=== PATIENT | male | born 1970 | race Hispanic/Latino ===

== ENCOUNTER 2018-01-06 08:04 | Emergency (ER) | payer SELFPAY ==
[2018-01-06] MEDS ORDERED: NAPROXEN 250 MG TAB ONE (08:33)
[2018-01-06] MEDS ORDERED: TETANUS/DIPHTHERIA TOXOID [ADULT] 0.5 ML VIAL IM ONE (08:33)
== END 2018-01-06 09:10 | disposition home or self-care (01) ==
LOC: EDH 08:04
DX: S43.081A Other subluxation of right shoulder joint, initial encounter (principal); S50.01XA Contusion of right elbow, initial encounter; E11.9 Type 2 diabetes mellitus without complications; Z87.891 Personal history of nicotine dependence; W03.XXXA Other fall on same level due to collision with another person, initial encounter; Y93.89 Activity, other specified; Y92.69 Other specified industrial and construction area as the place of occurrence of the external cause; Y99.8 Other external cause status
CPT/HCPCS: 73030; 73080; 90471; 90714

== ENCOUNTER 2018-08-25 12:15 | Emergency (ER) | payer OTHER ==
[2018-08-25] MEDS ORDERED: ASPIRIN 325 MG TABLET ONE (12:29)
[2018-08-25 12:34] LABS: BASOPHILS % (AUTO) 0.5 % (0.0-5.0); EOSINOPHILS % (AUTO) 1.8 % (0.0-8.0); HEMATOCRIT 37.2 % (42-54); LYMPHOCYTES % (AUTO) 17.1 % (21.0-51.0); MEAN CORPUSCULAR HEMOGLOBIN 29.4 pg (27.0-33.0); MEAN CORPUSCULAR HGB CONC 34.1 g/dL (32.0-36.0); MEAN CORPUSCULAR VOLUME 86.2 fL (79-99); MONOCYTES % (AUTO) 5.1 % (3.0-13.0); NEUTROPHILS % (AUTO) 75.5 % (40.0-77.0); PLATELET COUNT (AUTO) 233 K/uL (130-400); RED BLOOD CELL COUNT(AUTO) 4.31 MIL/uL (4.50-6.20); WHITE BLOOD COUNT (AUTO) 11.1 K/uL (4.8-10.8)
[2018-08-25 12:56] LABS: INR 0.98 (0.85-1.15); PARTIAL THROMBOPLASTIN TIME 27.5 SEC (26.3-35.5); PROTHROMBIN TIME 10.3 SEC (9.6-11.6)
[2018-08-25 12:59] LABS: ALBUMIN 3.6 g/dL (3.5-5.0); BILIRUBIN,TOTAL 0.6 mg/dL (0.2-1.0); CREATININE 1.4 mg/dL (0.5-1.5); POTASSIUM 4.1 mmol/L (3.5-5.1); TOTAL PROTEIN, SERUM 8.1 g/dL (6.0-8.3)
[2018-08-25 13:11] LABS: B-TYPE NATRIURETIC PEPTIDE 24 pg/mL (0-100)
[2018-08-25] MEDS ORDERED: INSULIN HUMULIN R 100 UNIT/ML 3ML ONE (13:38)
[2018-08-25] MEDS ORDERED: SODIUM CHLORIDE 0.9% 1000ML 1,000 ML IV ONE (13:45)
== END 2018-08-25 15:02 | disposition home or self-care (01) ==
LOC: EDH 12:15
DX: R07.89 Other chest pain (principal); E11.65 Type 2 diabetes mellitus with hyperglycemia; Z87.891 Personal history of nicotine dependence
CPT/HCPCS: 36415; 71045; 80053; 82550; 82948; 83874; 83880; 84484 ×2; 85025; 85610; 85730; 93005 ×2; 96361; 96374; 99284; J1815; J7030

== ENCOUNTER 2020-11-21 15:40 | Inpatient (IN) | payer OTHER ==
[~2020-11-21] VITALS: Ht 170.2 cm; Wt 83.5 kg
[2020-11-21 16:12] LABS: BASOPHILS % (AUTO) 0.4 % (0.0-5.0); EOSINOPHILS % (AUTO) 0.5 % (0.0-8.0); HEMATOCRIT 32.2 % (42-54); LYMPHOCYTES % (AUTO) 8.4 % (21.0-51.0); MEAN CORPUSCULAR HEMOGLOBIN 29.4 pg (27.0-33.0); MEAN CORPUSCULAR HGB CONC 35.1 g/dL (32.0-36.0); MEAN CORPUSCULAR VOLUME 83.6 fL (79-99); MONOCYTES % (AUTO) 7.8 % (3.0-13.0); NEUTROPHILS % (AUTO) 82.6 % (40.0-77.0); PLATELET COUNT (AUTO) 241 K/uL (130-400); RED BLOOD CELL COUNT(AUTO) 3.85 MIL/uL (4.50-6.20); RED CELL DISTRIBUTION WIDTH 12.1 % (11.0-15.5); WHITE BLOOD COUNT (AUTO) 13.9 K/uL (4.8-10.8)
[2020-11-21 16:29] LABS: INR 1.04 (0.85-1.15); PROTHROMBIN TIME 11.3 SEC (9.6-11.6)
[2020-11-21 16:30] LABS: PARTIAL THROMBOPLASTIN TIME 25.5 SEC (26.3-35.5)
[2020-11-21 16:44] LABS: CARBON DIOXIDE 25 mmol/L (21-32); CHLORIDE 96 mmol/L (101-111); CREATININE 1.4 mg/dL (0.5-1.5); GLOMERULAR FILTR. RATE CALC 57 mL/min (>60); GLUCOSE,RANDOM 373 mg/dL (70-105); POTASSIUM 3.9 mmol/L (3.5-5.1); SODIUM SERUM 133 mmol/L (136-145); UREA NITROGEN, BLOOD 20 mg/dL (7-18)
[2020-11-21] MEDS ORDERED: 0.9%NACL 1000ML 1,000 ML IV ONE ×2 (16:50→17:27)
[2020-11-21] MEDS ORDERED: ACETAMINOPHEN 325 MG TAB ONE (16:50)
[2020-11-21] MEDS ORDERED: ZOSYN 3.375GM+NS 50ML 50 ML IV ONE (16:51)
[2020-11-21 16:57] LABS: ALANINE AMINOTRANSFERASE 17 U/L (12-78); ALBUMIN 3.2 g/dL (3.5-5.0); ASPARTATE AMINOTRANSFERASE 19 U/L (10-37); CREATINE KINASE, TOTAL 67 U/L (21-232); MYOGLOBIN 73 ng/mL (10-92); TOTAL PROTEIN, SERUM 8.8 g/dL (6.0-8.3); TROPONIN I < 0.04 ng/mL (0.00-0.06)
[2020-11-21] MEDS ORDERED: VANCOMYCIN 1G/250ML KIT 250 ML IV ONE (17:26)
[2020-11-21] MEDS ORDERED: MORPHINE 2 MG SYG IV PRN (19:00)
[2020-11-21] MEDS ORDERED: VANCOMYCIN PROTOCOL PER PHARMACY IV PRN (19:00)
[2020-11-21] MEDS ORDERED: MORPHINE 4 MG SYG IV PRN (19:00)
[2020-11-21] MEDS ORDERED: ACETAMINOPHEN 325 MG TAB PO PRN (19:00)
[2020-11-21] MEDS ORDERED: LACTULOSE 20 GM/30 ML UDCUP PO PRN (19:00)
[2020-11-21] MEDS ORDERED: ONDANSETRON 4MG INJ IV PRN (19:00)
[2020-11-21 19:32] LABS: HEMOGLOBIN A1C 13.6 % (4.0-6.0)
[2020-11-21] MEDS ORDERED: VANCOMYCIN 500MG+NS 100ML 100 ML IV ONE (20:00)
[2020-11-21] MEDS: FAMOTIDINE 20MG TAB PO SCH (21:00)
[2020-11-21 22:30] VITALS: BP 139/82
[2020-11-21] MEDS: CEFEPIME HCL 1 GM VIAL IVP SCH (23:05)
[2020-11-21] MEDS: INSULIN HUMULIN R 100 UNIT/ML 3ML SQ SCH (23:08)
[2020-11-21] MEDS: INSULIN GLARGINE 100 UNITS/ML 10 ML VIAL SQ SCH (23:09)
[2020-11-22] MEDS: CEFEPIME HCL 1 GM VIAL IVP SCH ×3 (03:21→21:03)
[2020-11-22 03:53] VITALS: BP 99/50
[2020-11-22] MEDS: VANCOMYCIN 1G/250ML KIT 250 ML IV SCH ×2 (06:00→18:01)
[2020-11-22] MEDS: INSULIN HUMULIN R 100 UNIT/ML 3ML SQ SCH ×7 (06:01→21:11)
[2020-11-22 07:30] VITALS: BP 141/73
[2020-11-22] MEDS ORDERED: CEFEPIME HCL 2 GM VIAL ONE (09:44)
[2020-11-22] MEDS: FAMOTIDINE 20MG TAB PO SCH ×2 (09:50→21:03)
[2020-11-22] MEDS: ENOXAPARIN SODIUM 40 MG/0.4 ML SYRINGE SQ SCH (09:50)
[2020-11-22] MEDS ORDERED: GADODIAMIDE 10 MMOL/20 ML VIAL IV ONE (09:54)
[2020-11-22] MEDS: FLUCONAZOLE 200 MG/NS 100 ML 100 ML IV SCH (10:11)
[2020-11-22 12:24] VITALS: BP 116/63
[2020-11-22 16:00] VITALS: BP 119/61
[2020-11-22] MEDS: LACTATED RINGERS 1000ML 1,000 ML IV SCH (18:04)
[2020-11-22] MEDS ORDERED: METF-446 PO (19:19)
[2020-11-22 20:06] VITALS: BP 112/58
[2020-11-22] MEDS: INSULIN GLARGINE 100 UNITS/ML 10 ML VIAL SQ SCH (21:10)
[2020-11-22 21:30] VITALS: BP 170/64
[2020-11-23] VITALS (7 sets, daily range): BP systolic 103–152; BP diastolic 59–79
[2020-11-23] MEDS: CEFEPIME HCL 1 GM VIAL IVP SCH ×3 (05:56→18:39)
[2020-11-23] MEDS: LACTATED RINGERS 1000ML 1,000 ML IV SCH ×3 (06:02→23:11)
[2020-11-23 06:15] LABS: BASOPHILS % (AUTO) 0.3 % (0.0-5.0); EOSINOPHILS % (AUTO) 1.6 % (0.0-8.0); HEMATOCRIT 25.8 % (42-54); MEAN CORPUSCULAR HEMOGLOBIN 29.7 pg (27.0-33.0); MEAN CORPUSCULAR HGB CONC 35.3 g/dL (32.0-36.0); MEAN CORPUSCULAR VOLUME 84.3 fL (79-99); MONOCYTES % (AUTO) 10.4 % (3.0-13.0); NEUTROPHILS % (AUTO) 64.2 % (40.0-77.0); PLATELET COUNT (AUTO) 213 K/uL (130-400); RED BLOOD CELL COUNT(AUTO) 3.06 MIL/uL (4.50-6.20); RED CELL DISTRIBUTION WIDTH 12.1 % (11.0-15.5)
[2020-11-23 06:24] LABS: CREATININE 1.4 mg/dL (0.5-1.5); POTASSIUM 3.4 mmol/L (3.5-5.1)
[2020-11-23 06:29] LABS: ALBUMIN 2.4 g/dL (3.5-5.0); BILIRUBIN,TOTAL 1.1 mg/dL (0.2-1.0); TOTAL PROTEIN, SERUM 7.1 g/dL (6.0-8.3)
[2020-11-23] MEDS: VANCOMYCIN 1G/250ML KIT 250 ML IV SCH ×2 (06:48→17:49)
[2020-11-23] MEDS: INSULIN HUMULIN R 100 UNIT/ML 3ML SQ SCH ×4 (06:53→21:32)
[2020-11-23] MEDS ORDERED: INSULIN LISPRO 100 UNIT/ML 3ML SQ SCH (08:00)
[2020-11-23] MEDS ORDERED: POTASSIUM CHLORIDE 20MEQ/100ML 100 ML IV PRN (08:30)
[2020-11-23] MEDS ORDERED: KCL 20 MEQ ERTAB PO PRN (08:30)
[2020-11-23] MEDS ORDERED: LIDOCAINE HCL-MPF 1% 2ML VIAL IV PRN (08:30)
[2020-11-23] MEDS: FAMOTIDINE 20MG TAB PO SCH ×2 (10:42→21:18)
[2020-11-23] MEDS: FLUCONAZOLE 200 MG/NS 100 ML 100 ML IV SCH (10:42)
[2020-11-23] MEDS: ENOXAPARIN SODIUM 40 MG/0.4 ML SYRINGE SQ SCH (10:44)
[2020-11-23] MEDS: INSULIN LISPRO 100 UNIT/ML 3ML SQ SCH ×3 (10:47→17:51)
[2020-11-23] MEDS ORDERED: COMPOUND IV REFRIGERATED 1 EACH IVSOLN MISC PRN (17:30)
[2020-11-23] MEDS: POTASSIUM CHLORIDE 10% ELIXIR 20 MEQ/15 ML UDCUP PO PRN (18:40)
[2020-11-23] MEDS ORDERED: DIPH,PERTUSS(ACELL),TET VAC/PF 0.5 ML VIAL IM ONE (19:00)
[2020-11-23] MEDS ORDERED: INSULIN GLARGINE 100 UNITS/ML 10 ML VIAL SQ SCH (21:00)
[2020-11-23] MEDS: INSULIN GLARGINE 100 UNITS/ML 10 ML VIAL SQ SCH (21:31)
[2020-11-24 00:12] VITALS: BP 129/73
[2020-11-24] MEDS: VANCOMYCIN 750MG + NS 250 ML IV SCH ×4 (01:54→10:44)
[2020-11-24] MEDS: CEFEPIME HCL 1 GM VIAL IVP SCH ×3 (03:42→18:01)
[2020-11-24 04:12] VITALS: BP 138/76
[2020-11-24 05:50] LABS: BASOPHILS % (AUTO) 0.4 % (0.0-5.0); EOSINOPHILS % (AUTO) 2.9 % (0.0-8.0); HEMATOCRIT 29.6 % (42-54); LYMPHOCYTES % (AUTO) 18.4 % (21.0-51.0); MEAN CORPUSCULAR HEMOGLOBIN 28.7 pg (27.0-33.0); MEAN CORPUSCULAR HGB CONC 33.8 g/dL (32.0-36.0); MEAN CORPUSCULAR VOLUME 85.1 fL (79-99); NEUTROPHILS % (AUTO) 69.9 % (40.0-77.0); PLATELET COUNT (AUTO) 259 K/uL (130-400); RED BLOOD CELL COUNT(AUTO) 3.48 MIL/uL (4.50-6.20); RED CELL DISTRIBUTION WIDTH 12.1 % (11.0-15.5); WHITE BLOOD COUNT (AUTO) 9.5 K/uL (4.8-10.8)
[2020-11-24 06:23] LABS: ALBUMIN 2.4 g/dL (3.5-5.0); BILIRUBIN,TOTAL 0.5 mg/dL (0.2-1.0); CREATININE 1.3 mg/dL (0.5-1.5); POTASSIUM 3.9 mmol/L (3.5-5.1); TOTAL PROTEIN, SERUM 7.2 g/dL (6.0-8.3)
[2020-11-24] MEDS: INSULIN HUMULIN R 100 UNIT/ML 3ML SQ SCH ×4 (06:38→20:55)
[2020-11-24 08:00] VITALS: BP 127/71
[2020-11-24] MEDS: FAMOTIDINE 20MG TAB PO SCH ×2 (09:06→20:50)
[2020-11-24] MEDS: FLUCONAZOLE 200 MG/NS 100 ML 100 ML IV SCH (09:06)
[2020-11-24] MEDS: ENOXAPARIN SODIUM 40 MG/0.4 ML SYRINGE SQ SCH (09:07)
[2020-11-24] MEDS: LACTATED RINGERS 1000ML 1,000 ML IV SCH ×3 (09:09→23:22)
[2020-11-24] MEDS: INSULIN LISPRO 100 UNIT/ML 3ML SQ SCH ×3 (09:20→17:15)
[2020-11-24] MEDS ORDERED: NEOMY SULF/BACITRAC ZN/POLY OINT 30GM TUBE TP SCH (11:30)
[2020-11-24 13:31] VITALS: BP 110/73
[2020-11-24 16:24] VITALS: BP 124/67
[2020-11-24 20:00] VITALS: BP 138/75
[2020-11-24] MEDS: ACETAMINOPHEN 325 MG TAB PO PRN (20:52)
[2020-11-24] MEDS: INSULIN GLARGINE 100 UNITS/ML 10 ML VIAL SQ SCH (20:56)
[2020-11-24] MEDS ORDERED: VANCOMYCIN 750MG + NS 250 ML IV SCH ×2 (21:00)
[2020-11-25] VITALS: BP 122/74
[2020-11-25] MEDS: CEFEPIME HCL 1 GM VIAL IVP SCH ×3 (02:22→21:42)
[2020-11-25 04:00] VITALS: BP 140/80
[2020-11-25 05:46] LABS: BASOPHILS % (AUTO) 0.4 % (0.0-5.0); EOSINOPHILS % (AUTO) 4.2 % (0.0-8.0); HEMATOCRIT 27.6 % (42-54); LYMPHOCYTES % (AUTO) 19.7 % (21.0-51.0); MEAN CORPUSCULAR HEMOGLOBIN 29.7 pg (27.0-33.0); MEAN CORPUSCULAR HGB CONC 34.8 g/dL (32.0-36.0); MEAN CORPUSCULAR VOLUME 85.4 fL (79-99); MONOCYTES % (AUTO) 12.4 % (3.0-13.0); NEUTROPHILS % (AUTO) 62.9 % (40.0-77.0); PLATELET COUNT (AUTO) 224 K/uL (130-400); RED BLOOD CELL COUNT(AUTO) 3.23 MIL/uL (4.50-6.20); RED CELL DISTRIBUTION WIDTH 12.2 % (11.0-15.5); WHITE BLOOD COUNT (AUTO) 7.2 K/uL (4.8-10.8)
[2020-11-25 05:59] LABS: ALBUMIN 2.3 g/dL (3.5-5.0); BILIRUBIN,TOTAL 0.3 mg/dL (0.2-1.0); CREATININE 1.2 mg/dL (0.5-1.5); POTASSIUM 3.8 mmol/L (3.5-5.1)
[2020-11-25] MEDS: INSULIN HUMULIN R 100 UNIT/ML 3ML SQ SCH ×4 (06:34→21:52)
[2020-11-25 07:21] VITALS: BP 135/84
[2020-11-25] MEDS: INSULIN LISPRO 100 UNIT/ML 3ML SQ SCH ×3 (07:42→16:48)
[2020-11-25] MEDS: FLUCONAZOLE 200 MG/NS 100 ML 100 ML IV SCH (08:58)
[2020-11-25] MEDS: ENOXAPARIN SODIUM 40 MG/0.4 ML SYRINGE SQ SCH (08:58)
[2020-11-25] MEDS: FAMOTIDINE 20MG TAB PO SCH ×2 (08:58→21:42)
[2020-11-25] MEDS: NEOMY SULF/BACITRA/POLYMYXIN B 1 EACH PACKET TP SCH (09:00)
[2020-11-25] MEDS ORDERED: VANCOMYCIN 750MG + NS 250 ML IV SCH ×2 (09:48)
[2020-11-25 11:07] VITALS: BP 138/78
[2020-11-25 15:30] VITALS: BP 134/81
[2020-11-25 19:51] VITALS: BP 122/74
[2020-11-25] MEDS: VANCOMYCIN 750MG + NS 250 ML IV SCH ×2 (21:43)
[2020-11-25] MEDS: INSULIN GLARGINE 100 UNITS/ML 10 ML VIAL SQ SCH (21:51)
[2020-11-26 00:20] VITALS: BP 133/81
[2020-11-26 03:37] VITALS: BP 124/67
[2020-11-26] MEDS: CEFEPIME HCL 1 GM VIAL IVP SCH (04:39)
[2020-11-26] MEDS: ACETAMINOPHEN 325 MG TAB PO PRN (04:47)
[2020-11-26 05:18] LABS: BASOPHILS % (AUTO) 0.5 % (0.0-5.0); EOSINOPHILS % (AUTO) 4.1 % (0.0-8.0); HEMATOCRIT 28.3 % (42-54); LYMPHOCYTES % (AUTO) 19.2 % (21.0-51.0); MEAN CORPUSCULAR HEMOGLOBIN 28.8 pg (27.0-33.0); MEAN CORPUSCULAR HGB CONC 33.6 g/dL (32.0-36.0); MEAN CORPUSCULAR VOLUME 85.8 fL (79-99); NEUTROPHILS % (AUTO) 64.8 % (40.0-77.0); PLATELET COUNT (AUTO) 270 K/uL (130-400); RED CELL DISTRIBUTION WIDTH 12.3 % (11.0-15.5); WHITE BLOOD COUNT (AUTO) 7.9 K/uL (4.8-10.8)
[2020-11-26 05:39] LABS: ALBUMIN 2.5 g/dL (3.5-5.0); BILIRUBIN,TOTAL 0.3 mg/dL (0.2-1.0); CREATININE 1.3 mg/dL (0.5-1.5); POTASSIUM 3.8 mmol/L (3.5-5.1); TOTAL PROTEIN, SERUM 7.3 g/dL (6.0-8.3)
[2020-11-26] MEDS ORDERED: METF-446 PO (07:39)
[2020-11-26] MEDS: INSULIN HUMULIN R 100 UNIT/ML 3ML SQ SCH ×2 (08:10→11:48)
[2020-11-26] MEDS: INSULIN LISPRO 100 UNIT/ML 3ML SQ SCH ×2 (08:11→11:55)
[2020-11-26 08:14] VITALS: BP 121/67
[2020-11-26] MEDS: FLUCONAZOLE 200 MG/NS 100 ML 100 ML IV SCH (08:14)
[2020-11-26] MEDS: FAMOTIDINE 20MG TAB PO SCH (08:15)
[2020-11-26] MEDS: VANCOMYCIN 750MG + NS 250 ML IV SCH ×2 (08:15)
[2020-11-26] MEDS: ENOXAPARIN SODIUM 40 MG/0.4 ML SYRINGE SQ SCH (08:16)
[2020-11-26] MEDS: NEOMY SULF/BACITRA/POLYMYXIN B 1 EACH PACKET TP SCH (09:00)
[2020-11-26 11:47] VITALS: BP 125/76
[2020-11-26 11:49] VITALS: BP 125/76
[2020-11-26] MEDS ORDERED: AMOXICILLIN 500 MG CAPSULE PO SCH (14:00)
== END 2020-11-26 14:45 | disposition home or self-care (01) | DRG 264 ==
LOC: EDH 15:40 → EDHIP 15:41 → 3BH 21:42
PROVIDERS: ADMIT Internal Medicine; ATTEND Internal Medicine
PROC: 0YBN0ZZ Excision of Left Foot, Open Approach (ICD-10-PCS; principal; 2020-11-22)
DX: E11.52 Type 2 diabetes mellitus with diabetic peripheral angiopathy with gangrene (principal); E87.1 Hypo-osmolality and hyponatremia; I96 Gangrene, not elsewhere classified; M86.8X7 Other osteomyelitis, ankle and foot; L03.116 Cellulitis of left lower limb; E11.621 Type 2 diabetes mellitus with foot ulcer; Z20.822 Contact with and (suspected) exposure to COVID-19; E11.42 Type 2 diabetes mellitus with diabetic polyneuropathy; E11.69 Type 2 diabetes mellitus with other specified complication; L97.529 Non-pressure chronic ulcer of other part of left foot with unspecified severity; B95.4 Other streptococcus as the cause of diseases classified elsewhere; E66.9 Obesity, unspecified; Z87.891 Personal history of nicotine dependence
CPT/HCPCS: 36415; 71045; 73620; 73720; 80053; 80202; 82550; 82948; 83036; 83605; 83874; 84145; 84484; 85025; 85610; 85651; 85730; 86140; 86900; 86901; 87040; 87070; 87077; 87186; 87426; 90715; 93005; 93926; A9579; G0378; J0692; J1450; J1650; J1815; J2543; J3370; J7030; J7050; J7120; U0003

== ENCOUNTER 2020-12-19 15:49 | Inpatient (IN) | payer OTHER ==
[~2020-12-19] VITALS: Ht 167.6 cm; Wt 89.3 kg
[~2020-12-19 15:49] MED LIST: METF-446 PO
[2020-12-19 17:14] LABS: BASOPHILS % (AUTO) 0.6 % (0.0-5.0); EOSINOPHILS % (AUTO) 5.3 % (0.0-8.0); HEMATOCRIT 28.5 % (42-54); LYMPHOCYTES % (AUTO) 21.1 % (21.0-51.0); MEAN CORPUSCULAR HEMOGLOBIN 29.5 pg (27.0-33.0); MEAN CORPUSCULAR HGB CONC 34.7 g/dL (32.0-36.0); MEAN CORPUSCULAR VOLUME 84.8 fL (79-99); MONOCYTES % (AUTO) 8.6 % (3.0-13.0); NEUTROPHILS % (AUTO) 64.1 % (40.0-77.0); PLATELET COUNT (AUTO) 253 K/uL (130-400); RED BLOOD CELL COUNT(AUTO) 3.36 MIL/uL (4.50-6.20); RED CELL DISTRIBUTION WIDTH 12.3 % (11.0-15.5)
[2020-12-19] MEDS ORDERED: ONDANSETRON HCL 4 MG/2 ML VIAL ONE (17:14)
[2020-12-19] MEDS ORDERED: MORPHINE SULFATE 2 MG/ML 1ML SYG ONE (17:15)
[2020-12-19] MEDS ORDERED: VANCOMYCIN 1GM+NS 250ML 250 ML IV ONE (17:15)
[2020-12-19] MEDS ORDERED: ZOSYN 3.375GM+NS 50ML 50 ML IV ONE (17:15)
[2020-12-19] MEDS ORDERED: SODIUM CHLORIDE 0.9% 1000ML 1,000 ML IV ONE (17:16)
[2020-12-19 17:24] LABS: CREATININE 1.3 mg/dL (0.5-1.5)
[2020-12-19 17:26] LABS: INR 1.05 (0.85-1.15); PROTHROMBIN TIME 11.4 SEC (9.6-11.6)
[2020-12-19 17:27] LABS: PARTIAL THROMBOPLASTIN TIME 27.7 SEC (26.3-35.5)
[2020-12-19 17:29] LABS: BILIRUBIN,TOTAL 0.2 mg/dL (0.2-1.0); CRP QUANTITATIVE 38.2 mg/L (0.00-9.0); TOTAL PROTEIN, SERUM 8.1 g/dL (6.0-8.3)
[2020-12-19] MEDS ORDERED: DiphenhydrAMINE HCL 50 MG/ML VIAL ONE (17:45)
[2020-12-19 17:51] LABS: APPEARANCE,URINE Clear (CLEAR); BILIRUBIN,URINE Negative (NEGATIVE); COLOR,URINE Yellow (YELLOW); GLUCOSE, URINE (UA) >=1000 mg/dL (NEGATIVE); KETONES,URINE Negative (NEGATIVE); LEUKOCYTE ESTERASE ,URINE Negative (NEGATIVE); NITRATE,URINE Negative (NEGATIVE); OCCULT BLOOD,URINE Trace (NEGATIVE); PROTEIN,URINE POS 1+ mg/dL (NEGATIVE); UROBILINOGEN,URINE 0.2 mg/dL (0.2-1.0)
[2020-12-19 18:14] LABS: B-TYPE NATRIURETIC PEPTIDE 101 pg/mL (0-100)
[2020-12-19 18:20] LABS: BACTERIA,URINE Rare /HPF (None Seen); MUCUS,URINE Few LPF (None Seen); RBC,URINE 0-1 /HPF (0-1); SQUAMOUS EPITHELIAL CELL,UR Rare /HPF (0-2); WBC,URINE 0-1 /HPF (0-1)
[2020-12-19] MEDS ORDERED: LACTULOSE 20 GM/30 ML UDCUP PO PRN (18:30)
[2020-12-19] MEDS ORDERED: MAG HYDROX/AL HYDROX/SIMETH ES 30 ML SUSP UDCUP PO PRN (18:30)
[2020-12-19] MEDS ORDERED: ACETAMINOPHEN 325 MG TAB PO PRN ×2 (18:30)
[2020-12-19] MEDS ORDERED: DiphenhydrAMINE HCL 50 MG/ML VIAL IV PRN (18:30)
[2020-12-19] MEDS ORDERED: NITROGLYCERIN 0.4 MG SL TAB SL PRN (18:30)
[2020-12-19] MEDS ORDERED: ONDANSETRON HCL 4 MG/2 ML VIAL IV PRN (18:30)
[2020-12-19] MEDS ORDERED: DIPHENHYDRAMINE HCL 25 MG CAPSULE PO PRN (18:30)
[2020-12-19] MEDS ORDERED: GUAIFENESIN-DM 200/20 MG 10 ML PO PRN (18:30)
[2020-12-19 18:45] LABS: ERYTHROCYTE SEDIMENTATION RATE 112 MM/HR (0-20)
[2020-12-19] MEDS: ZOSYN 3.375GM+NS 50ML 50 ML IV SCH (21:00)
[2020-12-19 23:30] VITALS: BP 153/73
[2020-12-20 03:47] VITALS: BP 107/54
[2020-12-20] MEDS: ZOSYN 3.375GM+NS 50ML 50 ML IV SCH ×3 (04:44→20:44)
[2020-12-20 05:21] LABS: CREATININE 1.1 mg/dL (0.5-1.5); POTASSIUM 3.7 mmol/L (3.5-5.1)
[2020-12-20 08:00] VITALS: BP 126/80
[2020-12-20] MEDS: ENOXAPARIN SODIUM 40 MG/0.4 ML SYRINGE SQ SCH (10:07)
[2020-12-20 12:00] VITALS: BP 118/68
[2020-12-20 16:00] VITALS: BP 141/68
[2020-12-20 17:55] LABS: HEMOGLOBIN A1C 11.3 % (4.0-6.0)
[2020-12-20] MEDS: INSULIN HUMULIN R 100 UNIT/ML 3ML SQ SCH (18:07)
[2020-12-20 20:00] VITALS: BP 121/69
[2020-12-21] VITALS: BP 121/70
[2020-12-21 04:00] VITALS: BP 113/62
[2020-12-21] MEDS: ZOSYN 3.375GM+NS 50ML 50 ML IV SCH ×3 (05:27→21:02)
[2020-12-21 06:21] LABS: BASOPHILS % (AUTO) 0.6 % (0.0-5.0); EOSINOPHILS % (AUTO) 3.9 % (0.0-8.0); LYMPHOCYTES % (AUTO) 28.4 % (21.0-51.0); MEAN CORPUSCULAR HEMOGLOBIN 28.5 pg (27.0-33.0); MEAN CORPUSCULAR HGB CONC 33.4 g/dL (32.0-36.0); MEAN CORPUSCULAR VOLUME 85.3 fL (79-99); MONOCYTES % (AUTO) 7.8 % (3.0-13.0); PLATELET COUNT (AUTO) 234 K/uL (130-400); RED CELL DISTRIBUTION WIDTH 12.2 % (11.0-15.5)
[2020-12-21] MEDS: INSULIN HUMULIN R 100 UNIT/ML 3ML SQ SCH ×4 (06:23→21:05)
[2020-12-21 06:35] LABS: CREATININE 1.3 mg/dL (0.5-1.5)
[2020-12-21 08:00] VITALS: BP 121/74
[2020-12-21] MEDS: ENOXAPARIN SODIUM 40 MG/0.4 ML SYRINGE SQ SCH (09:50)
[2020-12-21 12:47] VITALS: BP 126/66
[2020-12-21 16:00] VITALS: BP 114/74
[2020-12-21 20:22] VITALS: BP 137/84
[2020-12-22 00:06] VITALS: BP 114/69
[2020-12-22 04:14] VITALS: BP 155/73
[2020-12-22] MEDS: ZOSYN 3.375GM+NS 50ML 50 ML IV SCH (05:11)
[2020-12-22] MEDS: INSULIN HUMULIN R 100 UNIT/ML 3ML SQ SCH ×4 (06:16→21:00)
[2020-12-22 06:24] LABS: BASOPHILS % (AUTO) 0.5 % (0.0-5.0); EOSINOPHILS % (AUTO) 4.5 % (0.0-8.0); HEMATOCRIT 27.7 % (42-54); LYMPHOCYTES % (AUTO) 29.8 % (21.0-51.0); MEAN CORPUSCULAR HEMOGLOBIN 28.6 pg (27.0-33.0); MEAN CORPUSCULAR HGB CONC 33.6 g/dL (32.0-36.0); MEAN CORPUSCULAR VOLUME 85.2 fL (79-99); MONOCYTES % (AUTO) 8.4 % (3.0-13.0); NEUTROPHILS % (AUTO) 56.6 % (40.0-77.0); PLATELET COUNT (AUTO) 210 K/uL (130-400); RED BLOOD CELL COUNT(AUTO) 3.25 MIL/uL (4.50-6.20); WHITE BLOOD COUNT (AUTO) 8.2 K/uL (4.8-10.8)
[2020-12-22 06:41] LABS: CREATININE 1.2 mg/dL (0.5-1.5)
[2020-12-22 08:00] VITALS: BP 124/68
[2020-12-22] MEDS: ENOXAPARIN SODIUM 40 MG/0.4 ML SYRINGE SQ SCH (09:00)
[2020-12-22] MEDS ORDERED: ACETAMINOPHEN-CODEINE 300/30MG TAB PO PRN (10:00)
[2020-12-22] MEDS: CEFTRIAXONE SODIUM 1 GM IVP SCH (10:37)
[2020-12-22] MEDS: INSULIN GLARGINE 100 UNITS/ML 10 ML VIAL SQ SCH (10:51)
[2020-12-22 12:00] VITALS: BP 137/70
[2020-12-22 16:00] VITALS: BP 139/73
[2020-12-22 20:15] VITALS: BP 162/88
[2020-12-23] VITALS (19 sets, daily range): BP systolic 108–154; BP diastolic 64–83
[2020-12-23] MEDS: INSULIN HUMULIN R 100 UNIT/ML 3ML SQ SCH ×4 (06:22→22:36)
[2020-12-23 06:29] LABS: BASOPHILS % (AUTO) 0.7 % (0.0-5.0); HEMATOCRIT 29.1 % (42-54); LYMPHOCYTES % (AUTO) 35.2 % (21.0-51.0); MEAN CORPUSCULAR HEMOGLOBIN 28.6 pg (27.0-33.0); MEAN CORPUSCULAR VOLUME 84.1 fL (79-99); MONOCYTES % (AUTO) 8.8 % (3.0-13.0); NEUTROPHILS % (AUTO) 50.2 % (40.0-77.0); PLATELET COUNT (AUTO) 233 K/uL (130-400); RED BLOOD CELL COUNT(AUTO) 3.46 MIL/uL (4.50-6.20); RED CELL DISTRIBUTION WIDTH 12.1 % (11.0-15.5)
[2020-12-23 06:36] LABS: CREATININE 1.3 mg/dL (0.5-1.5); POTASSIUM 4.2 mmol/L (3.5-5.1)
[2020-12-23] MEDS: CEFTRIAXONE SODIUM 1 GM IVP SCH (09:54)
[2020-12-23] MEDS ORDERED: BUPIVACAINE/PF 0.5% 30ML VIAL ONE (12:11)
[2020-12-23] MEDS ORDERED: LIDOCAINE HCL 1% 20 ML VIAL ONE (12:11)
[2020-12-23] MEDS ORDERED: FENTANYL CITRATE PF 50 MCG/1 ML 2ML VIAL ONE (13:02)
[2020-12-23] MEDS ORDERED: MIDAZOLAM HCL 1 MG/ML 2ML VIAL ONE (13:02)
[2020-12-23] MEDS ORDERED: KETAMINE 50MG/ML SYRINGE 50 MG/ML DISP.SYRIN IV ONE (13:05)
[2020-12-23] MEDS ORDERED: PROPOFOL 10 MG/ML 20ML VIAL IV ONE (13:07)
[2020-12-23] MEDS: METRONIDAZOLE 500 MG TABLET PO SCH ×2 (14:00→22:32)
[2020-12-24 04:10] VITALS: BP 136/68
[2020-12-24 05:54] LABS: BASOPHILS % (AUTO) 0.2 % (0.0-5.0); EOSINOPHILS % (AUTO) 2.2 % (0.0-8.0); HEMATOCRIT 29.9 % (42-54); MEAN CORPUSCULAR HEMOGLOBIN 27.9 pg (27.0-33.0); MEAN CORPUSCULAR HGB CONC 33.1 g/dL (32.0-36.0); MEAN CORPUSCULAR VOLUME 84.2 fL (79-99); NEUTROPHILS % (AUTO) 65.4 % (40.0-77.0); PLATELET COUNT (AUTO) 241 K/uL (130-400); RED BLOOD CELL COUNT(AUTO) 3.55 MIL/uL (4.50-6.20); RED CELL DISTRIBUTION WIDTH 11.9 % (11.0-15.5); WHITE BLOOD COUNT (AUTO) 9.9 K/uL (4.8-10.8)
[2020-12-24 06:13] LABS: ALBUMIN 2.8 g/dL (3.5-5.0); BILIRUBIN,TOTAL 0.3 mg/dL (0.2-1.0); CREATININE 1.5 mg/dL (0.5-1.5); CRP QUANTITATIVE 22.3 mg/L (0.00-9.0); POTASSIUM 3.7 mmol/L (3.5-5.1); TOTAL PROTEIN, SERUM 7.5 g/dL (6.0-8.3)
[2020-12-24] MEDS: METRONIDAZOLE 500 MG TABLET PO SCH (07:00)
[2020-12-24] MEDS: INSULIN HUMULIN R 100 UNIT/ML 3ML SQ SCH (07:03)
[2020-12-24 08:00] VITALS: BP 118/69
[2020-12-24] MEDS: INSULIN GLARGINE 100 UNITS/ML 10 ML VIAL SQ SCH (09:25)
[2020-12-24 11:31] VITALS: BP 131/69
[2020-12-24] MEDS ORDERED: TYL3B PO (11:56)
== END 2020-12-24 15:10 | disposition home or self-care (01) | DRG 617 ==
LOC: EDH 15:49 → EDHIP 15:50 → 3CH 23:33
PROVIDERS: ADMIT Family Medicine; ATTEND Family Medicine
PROC: 0Y6Q0Z0 Detachment at Left 1st Toe, Complete, Open Approach (ICD-10-PCS; principal; 2020-12-23 13:26)
DX: E11.69 Type 2 diabetes mellitus with other specified complication (principal); L03.90 Cellulitis, unspecified; M86.9 Osteomyelitis, unspecified; E11.52 Type 2 diabetes mellitus with diabetic peripheral angiopathy with gangrene; M00.9 Pyogenic arthritis, unspecified; E11.621 Type 2 diabetes mellitus with foot ulcer; L97.529 Non-pressure chronic ulcer of other part of left foot with unspecified severity; L97.519 Non-pressure chronic ulcer of other part of right foot with unspecified severity; E11.65 Type 2 diabetes mellitus with hyperglycemia; E11.42 Type 2 diabetes mellitus with diabetic polyneuropathy; E66.9 Obesity, unspecified; I10 Essential (primary) hypertension; M19.079 Primary osteoarthritis, unspecified ankle and foot; Z68.31 Body mass index [BMI] 31.0-31.9, adult; Z79.4 Long term (current) use of insulin; Z87.891 Personal history of nicotine dependence
CPT/HCPCS: 36415; 73620; 73718; 80048; 80053; 81001; 82948; 83036; 83605; 83880; 84145; 84484; 85025; 85610; 85651; 85730; 86140; 87040; 87070; 87076; 87077; 87186; 93005; 93925; G0378; J0696; J1200; J1650; J1815; J2250; J2405; J2543; J2704; J3010; J3370; J3490; J7030; L3260

== ENCOUNTER 2021-05-03 23:14 | Inpatient (IN) | payer OTHER ==
[~2021-05-03] VITALS: Ht 167.6 cm; Wt 69.5 kg
[~2021-05-03 23:14] MED LIST changes: +TYL3B PO
[2021-05-03 23:47] VITALS: BP 114/62
[2021-05-04] VITALS (9 sets, daily range): BP systolic 95–125; BP diastolic 51–63
[2021-05-04] MEDS ORDERED: ZOSYN 3.375GM+NS 50ML 50 ML IV SCH
[2021-05-04] MEDS ORDERED: 0.9% NACL 250ML IVPB ONE
[2021-05-04] MEDS ORDERED: 0.9%NACL 1000ML 1,914 ML IV ONE
[2021-05-04] MEDS ORDERED: VANCOMYCIN 1G VIAL IVPB ONE
[2021-05-04 00:01] LABS: APPEARANCE,URINE Clear (CLEAR); BILIRUBIN,URINE Negative (NEGATIVE); COLOR,URINE Yellow (YELLOW); GLUCOSE, URINE (UA) >=1000 mg/dL (NEGATIVE); KETONES,URINE 15 mg/dL (NEGATIVE); LEUKOCYTE ESTERASE ,URINE Negative (NEGATIVE); NITRATE,URINE Negative (NEGATIVE); OCCULT BLOOD,URINE Small (NEGATIVE); PROTEIN,URINE POS 2+ mg/dL (NEGATIVE); UROBILINOGEN,URINE 0.2 mg/dL (0.2-1.0)
[2021-05-04 00:24] LABS: BASOPHILS % (AUTO) 0.4 % (0.0-5.0); EOSINOPHILS % (AUTO) 0.2 % (0.0-8.0); HEMATOCRIT 27.3 % (42-54); LYMPHOCYTES % (AUTO) 8.6 % (21.0-51.0); MEAN CORPUSCULAR HEMOGLOBIN 28.8 pg (27.0-33.0); MEAN CORPUSCULAR HGB CONC 34.4 g/dL (32.0-36.0); MEAN CORPUSCULAR VOLUME 83.7 fL (79-99); MONOCYTES % (AUTO) 10.1 % (3.0-13.0); NEUTROPHILS % (AUTO) 80.3 % (40.0-77.0); PLATELET COUNT (AUTO) 266 K/uL (130-400); RED BLOOD CELL COUNT(AUTO) 3.26 MIL/uL (4.50-6.20); RED CELL DISTRIBUTION WIDTH 12.1 % (11.0-15.5); WHITE BLOOD COUNT (AUTO) 11.3 K/uL (4.8-10.8)
[2021-05-04 00:26] LABS: RBC,URINE 0-1 /HPF (0-1)
[2021-05-04 00:27] LABS: BACTERIA,URINE None Seen /HPF (None Seen); SQUAMOUS EPITHELIAL CELL,UR Rare /HPF (0-2); WBC,URINE None Seen /HPF (0-1)
[2021-05-04] MEDS ORDERED: 0.9%NACL 50ML 50 ML IV ONE (00:27)
[2021-05-04 00:28] LABS: FINE GRANULAR CASTS,URINE 0-2 /LPF (None Seen)
[2021-05-04 00:33] LABS: INR 1.09 (0.85-1.15); PROTHROMBIN TIME 11.8 SEC (9.6-11.6)
[2021-05-04 00:39] LABS: ALANINE AMINOTRANSFERASE 27 U/L (12-78); ALBUMIN 2.7 g/dL (3.5-5.0); ASPARTATE AMINOTRANSFERASE 24 U/L (10-37); BILIRUBIN,TOTAL 0.5 mg/dL (0.2-1.0); CARBON DIOXIDE 25 mmol/L (21-32); CREATININE 1.7 mg/dL (0.5-1.5); GLOMERULAR FILTR. RATE CALC 45 mL/min (>60); POTASSIUM 4.1 mmol/L (3.5-5.1); SODIUM SERUM 128 mmol/L (136-145); TOTAL PROTEIN, SERUM 7.8 g/dL (6.0-8.3); UREA NITROGEN, BLOOD 24 mg/dL (7-18)
[2021-05-04 00:48] LABS: CHLORIDE 90 mmol/L (101-111)
[2021-05-04 00:49] LABS: GLUCOSE,RANDOM 488 mg/dL (70-105); LIPASE < 50 U/L (114-286)
[2021-05-04 01:33] LABS: ERYTHROCYTE SEDIMENTATION RATE > 150 MM/HR (0-20)
[2021-05-04] MEDS ORDERED: VANCOMYCIN 1G/250ML KIT 250 ML IV ONE (01:58)
[2021-05-04] MEDS ORDERED: ONDANSETRON 4MG INJ IV PRN (03:00)
[2021-05-04] MEDS ORDERED: LACTATED RINGERS 1000ML 1,914 ML IV ONE (03:00)
[2021-05-04] MEDS ORDERED: VANCOMYCIN PROTOCOL PER PHARMACY IV PRN (03:00)
[2021-05-04] MEDS: ZOSYN 3.375GM+NS 50ML 50 ML IV SCH ×3 (05:00→23:28)
[2021-05-04] MEDS: LACTATED RINGERS 1000ML 1,000 ML IV SCH ×3 (05:39→18:51)
[2021-05-04] MEDS ORDERED: INSULIN REGULAR IV ONE ×2 (06:30)
[2021-05-04] MEDS ORDERED: HUMAN IV ONE ×2 (06:30)
[2021-05-04] MEDS ORDERED: [UNRECOGNIZED DRUG - OTHER] IV ONE ×2 (06:30)
[2021-05-04] MEDS ORDERED: COMPOUND IV REFRIGERATED 1 EACH IVSOLN MISC PRN (06:30)
[2021-05-04] MEDS ORDERED: INSULIN HUMULIN R 100 UNIT/ML 3ML ONE (06:32)
[2021-05-04] MEDS: FAMOTIDINE 20MG VIAL IV SCH ×2 (08:42→21:00)
[2021-05-04] MEDS: VANCOMYCIN 1.25GM/NS 250ML IVPB SCH ×2 (10:02)
[2021-05-04 10:51] LABS: CREATININE,URINE RANDOM 74 mg/dL (30-135); PROTEIN,URINE RANDOM 104.7 mg/dL (0-11.9); SODIUM,URINE RANDOM < 14 mmol/l (40-220)
[2021-05-04 11:18] LABS: CREATININE 1.7 mg/dL (0.5-1.5); URIC ACID 3.9 mg/dL (2.6-7.2)
[2021-05-04] MEDS: INSULIN HUMULIN R 100 UNIT/ML 3ML SQ SCH ×3 (14:55→21:41)
[2021-05-05] VITALS (7 sets, daily range): BP systolic 105–134; BP diastolic 61–80
[2021-05-05] MEDS: LACTATED RINGERS 1000ML 1,000 ML IV SCH ×4 (03:01→21:30)
[2021-05-05] MEDS: ZOSYN 3.375GM+NS 50ML 50 ML IV SCH ×3 (05:00→21:13)
[2021-05-05 07:21] LABS: BASOPHILS % (AUTO) 0.4 % (0.0-5.0); EOSINOPHILS % (AUTO) 1.5 % (0.0-8.0); HEMATOCRIT 29.5 % (42-54); LYMPHOCYTES % (AUTO) 15.3 % (21.0-51.0); MEAN CORPUSCULAR HEMOGLOBIN 28.6 pg (27.0-33.0); MEAN CORPUSCULAR HGB CONC 33.9 g/dL (32.0-36.0); MEAN CORPUSCULAR VOLUME 84.3 fL (79-99); MONOCYTES % (AUTO) 8.6 % (3.0-13.0); NEUTROPHILS % (AUTO) 73.7 % (40.0-77.0); PLATELET COUNT (AUTO) 298 K/uL (130-400); RED CELL DISTRIBUTION WIDTH 12.3 % (11.0-15.5); WHITE BLOOD COUNT (AUTO) 11.4 K/uL (4.8-10.8)
[2021-05-05 07:37] LABS: HEMOGLOBIN A1C 13.8 % (4.0-6.0)
[2021-05-05 07:58] LABS: ALANINE AMINOTRANSFERASE 28 U/L (12-78); ALBUMIN 2.5 g/dL (3.5-5.0); ASPARTATE AMINOTRANSFERASE 40 U/L (10-37); BILIRUBIN,TOTAL 0.5 mg/dL (0.2-1.0); CARBON DIOXIDE 24 mmol/L (21-32); CHLORIDE 99 mmol/L (101-111); CHOLESTEROL 149 mg/dL (<200); CREATINE KINASE, TOTAL 76 U/L (21-232); CREATININE 1.6 mg/dL (0.5-1.5); GLOMERULAR FILTR. RATE CALC 48 mL/min (>60); GLUCOSE,RANDOM 290 mg/dL (70-105); HDL CHOLESTEROL 24 mg/dL (29-71); LDL DIRECT 80 mg/dL (0-99); MYOGLOBIN 76 ng/mL (10-92); PHOSPHORUS 2.6 mg/dL (2.5-4.9); POTASSIUM 3.7 mmol/L (3.5-5.1); SODIUM SERUM 136 mmol/L (136-145); TOTAL PROTEIN, SERUM 7.8 g/dL (6.0-8.3); TRIGLYCERIDES 179 mg/dL (30-200); UREA NITROGEN, BLOOD 17 mg/dL (7-18)
[2021-05-05 08:06] LABS: % IRON SATURATION 9.7 % (30-44)
[2021-05-05] MEDS: FAMOTIDINE 20MG VIAL IV SCH ×2 (08:19→21:13)
[2021-05-05] MEDS: ASPIRIN 81MG CHEW TAB PO SCH (08:19)
[2021-05-05] MEDS: ATORVASTATIN 20 MG TABLET PO SCH (08:19)
[2021-05-05] MEDS: INSULIN HUMULIN R 100 UNIT/ML 3ML SQ SCH ×6 (08:29→21:22)
[2021-05-05] MEDS ORDERED: REGADENOSON 0.4 MG/5 ML PF SYG IVP SCH (09:00)
[2021-05-05] MEDS: VANCOMYCIN 1.25GM/NS 250ML IVPB SCH ×2 (09:09)
[2021-05-05] MEDS ORDERED: 0.9%NACL 50ML 50 ML IV ONE (16:30)
[2021-05-05] MEDS: INSULIN GLARGINE 100 UNITS/ML 10 ML VIAL SQ SCH (21:22)
[2021-05-06] VITALS (7 sets, daily range): BP systolic 100–144; BP diastolic 58–84
[2021-05-06] MEDS: LACTATED RINGERS 1000ML 1,000 ML IV SCH ×4 (04:57→23:20)
[2021-05-06] MEDS: ZOSYN 3.375GM+NS 50ML 50 ML IV SCH ×3 (04:57→19:36)
[2021-05-06] MEDS: INSULIN HUMULIN R 100 UNIT/ML 3ML SQ SCH ×7 (06:19→20:41)
[2021-05-06 06:41] LABS: BASOPHILS % (AUTO) 0.4 % (0.0-5.0); EOSINOPHILS % (AUTO) 2.8 % (0.0-8.0); HEMATOCRIT 24.1 % (42-54); LYMPHOCYTES % (AUTO) 18.6 % (21.0-51.0); MEAN CORPUSCULAR HEMOGLOBIN 28.1 pg (27.0-33.0); MEAN CORPUSCULAR HGB CONC 33.2 g/dL (32.0-36.0); MEAN CORPUSCULAR VOLUME 84.6 fL (79-99); MONOCYTES % (AUTO) 12.3 % (3.0-13.0); NEUTROPHILS % (AUTO) 65.4 % (40.0-77.0); PLATELET COUNT (AUTO) 212 K/uL (130-400); RED BLOOD CELL COUNT(AUTO) 2.85 MIL/uL (4.50-6.20); RED CELL DISTRIBUTION WIDTH 12.4 % (11.0-15.5); WHITE BLOOD COUNT (AUTO) 7.8 K/uL (4.8-10.8)
[2021-05-06 07:04] LABS: BILIRUBIN,TOTAL 0.3 mg/dL (0.2-1.0); CREATININE 1.5 mg/dL (0.5-1.5); POTASSIUM 3.6 mmol/L (3.5-5.1); TOTAL PROTEIN, SERUM 6.8 g/dL (6.0-8.3)
[2021-05-06] MEDS: FAMOTIDINE 20MG VIAL IV SCH ×2 (08:35→19:36)
[2021-05-06] MEDS: ASPIRIN 81MG CHEW TAB PO SCH (08:35)
[2021-05-06] MEDS: VANCOMYCIN 1.25GM/NS 250ML IVPB SCH ×2 (08:36)
[2021-05-06] MEDS: ATORVASTATIN 20 MG TABLET PO SCH (08:36)
[2021-05-06] MEDS: INSULIN GLARGINE 100 UNITS/ML 10 ML VIAL SQ SCH (20:41)
[2021-05-07] VITALS (7 sets, daily range): BP systolic 88–144; BP diastolic 53–84
[2021-05-07] MEDS: ZOSYN 3.375GM+NS 50ML 50 ML IV SCH ×3 (04:17→20:28)
[2021-05-07] MEDS: LACTATED RINGERS 1000ML 1,000 ML IV SCH ×2 (04:21→13:41)
[2021-05-07 04:55] LABS: ALBUMIN 1.9 g/dL (3.5-5.0); BILIRUBIN,TOTAL 0.3 mg/dL (0.2-1.0); CREATININE 1.2 mg/dL (0.5-1.5); POTASSIUM 3.5 mmol/L (3.5-5.1); TOTAL PROTEIN, SERUM 6.8 g/dL (6.0-8.3)
[2021-05-07] MEDS: INSULIN HUMULIN R 100 UNIT/ML 3ML SQ SCH ×7 (05:38→20:36)
[2021-05-07] MEDS: FAMOTIDINE 20MG VIAL IV SCH ×2 (09:43→20:28)
[2021-05-07] MEDS: ASPIRIN 81MG CHEW TAB PO SCH (09:43)
[2021-05-07] MEDS: ATORVASTATIN 20 MG TABLET PO SCH (09:43)
[2021-05-07] MEDS: VANCOMYCIN 1.25GM/NS 250ML IVPB SCH ×2 (11:52)
[2021-05-07] MEDS: INSULIN GLARGINE 100 UNITS/ML 10 ML VIAL SQ SCH (20:34)
[2021-05-08] VITALS (28 sets, daily range): BP systolic 115–168; BP diastolic 59–93
[2021-05-08] MEDS: INSULIN HUMULIN R 100 UNIT/ML 3ML SQ SCH ×7 (05:13→20:33)
[2021-05-08] MEDS: ZOSYN 3.375GM+NS 50ML 50 ML IV SCH ×3 (05:24→20:32)
[2021-05-08 06:21] LABS: BASOPHILS % (AUTO) 0.4 % (0.0-5.0); EOSINOPHILS % (AUTO) 4.3 % (0.0-8.0); HEMATOCRIT 23.9 % (42-54); MEAN CORPUSCULAR HEMOGLOBIN 28.1 pg (27.0-33.0); MEAN CORPUSCULAR HGB CONC 32.6 g/dL (32.0-36.0); MONOCYTES % (AUTO) 8.6 % (3.0-13.0); NEUTROPHILS % (AUTO) 66.1 % (40.0-77.0); PLATELET COUNT (AUTO) 246 K/uL (130-400); RED BLOOD CELL COUNT(AUTO) 2.78 MIL/uL (4.50-6.20); RED CELL DISTRIBUTION WIDTH 12.4 % (11.0-15.5); WHITE BLOOD COUNT (AUTO) 8.2 K/uL (4.8-10.8)
[2021-05-08 06:35] LABS: CREATININE 1.4 mg/dL (0.5-1.5); POTASSIUM 3.5 mmol/L (3.5-5.1)
[2021-05-08] MEDS ORDERED: 0.9%NACL 100ML 100 ML IV SCH (09:00)
[2021-05-08] MEDS: VANCOMYCIN 1.25GM/NS 250ML IVPB SCH ×2 (09:00)
[2021-05-08] MEDS: ASPIRIN 81MG CHEW TAB PO SCH (09:00)
[2021-05-08] MEDS: FAMOTIDINE 20MG VIAL IV SCH ×2 (10:36→20:32)
[2021-05-08] MEDS: VANCOMYCIN 500MG+NS 100ML IVPB IV SCH ×2 (10:36→23:24)
[2021-05-08] MEDS: ATORVASTATIN 20 MG TABLET PO SCH (10:37)
[2021-05-08] MEDS ORDERED: SUCCINYLCHOLINE 200MG/10ML SYR ONE (11:03)
[2021-05-08] MEDS ORDERED: DEXAMETHASONE SOD PHOSPHATE 10MG/ML 1ML VIAL ONE (11:03)
[2021-05-08] MEDS ORDERED: LIDOCAINE PF 100MG/5ML (2%) SYRINGE 5ML ONE (11:03)
[2021-05-08] MEDS ORDERED: ONDANSETRON 4MG INJ ONE (11:04)
[2021-05-08] MEDS ORDERED: GLYCOPYRROLATE 1 MG/5 ML SYRINGE ONE ×2 (11:04→14:31)
[2021-05-08] MEDS ORDERED: PROPOFOL 10 MG/ML 20ML VIAL IV ONE (11:04)
[2021-05-08] MEDS ORDERED: ROCURONIUM 10MG/1ML SYR 10 MG/ML ML ONE (11:04)
[2021-05-08] MEDS ORDERED: MIDAZOLAM HCL 1 MG/ML 2ML VIAL ONE (11:04)
[2021-05-08] MEDS ORDERED: NEOSTIGMINE 5MG/5ML SYR IV ONE ×2 (11:04→14:31)
[2021-05-08] MEDS ORDERED: FENTANYL CITRATE PF 50 MCG/1 ML 2ML VIAL ONE ×2 (11:05→13:41)
[2021-05-08] MEDS ORDERED: ROPIVACAINE 0.5% 5MG/ML 30ML IJ ONE (11:15)
[2021-05-08] MEDS ORDERED: KETAMINE 50MG/ML SYRINGE 50 MG/ML DISP.SYRIN IV ONE (11:16)
[2021-05-08] MEDS ORDERED: ALBUMIN (HUMAN) 5% 250 ML IV ONE (11:16)
[2021-05-08] MEDS ORDERED: 0.9%NACL 1000ML 1,000 ML IV ONE (11:42)
[2021-05-08] MEDS ORDERED: EPHEDRINE SULFATE 50 MG/ML AMPULE ONE (13:21)
[2021-05-08 16:14] LABS: HEMATOCRIT 30.3 % (42-54); MEAN CORPUSCULAR HEMOGLOBIN 28.9 pg (27.0-33.0); MEAN CORPUSCULAR HGB CONC 33.3 g/dL (32.0-36.0); MEAN CORPUSCULAR VOLUME 86.8 fL (79-99); PLATELET COUNT (AUTO) 222 K/uL (130-400); RED BLOOD CELL COUNT(AUTO) 3.49 MIL/uL (4.50-6.20); RED CELL DISTRIBUTION WIDTH 12.7 % (11.0-15.5); WHITE BLOOD COUNT (AUTO) 9.3 K/uL (4.8-10.8)
[2021-05-08] MEDS ORDERED: HYDROMORPHONE 1 MG INJ IVP PRN (16:30)
[2021-05-08 16:56] LABS: LYMPHOCYTES % (MANUAL) 10 % (22-44); MAN.DIFF COMMENT-IMPRESSION MANUAL DIFFERENTIAL; MONOCYTES % (MANUAL) 3 % (2-9); SEGMENTED NEUTROPHILS % 87 % (40-70)
[2021-05-08 16:57] LABS: PLATELET MORPHOLOGY COMMENT ADEQUATE
[2021-05-08] MEDS: INSULIN GLARGINE 100 UNITS/ML 10 ML VIAL SQ SCH (20:34)
[2021-05-09 04:00] VITALS: BP 141/76
[2021-05-09 04:13] LABS: BASOPHILS % (AUTO) 0.2 % (0.0-5.0); EOSINOPHILS % (AUTO) 0.1 % (0.0-8.0); HEMATOCRIT 27.7 % (42-54); LYMPHOCYTES % (AUTO) 8.8 % (21.0-51.0); MEAN CORPUSCULAR HEMOGLOBIN 28.7 pg (27.0-33.0); MEAN CORPUSCULAR HGB CONC 34.7 g/dL (32.0-36.0); MEAN CORPUSCULAR VOLUME 82.7 fL (79-99); NEUTROPHILS % (AUTO) 82.7 % (40.0-77.0); PLATELET COUNT (AUTO) 313 K/uL (130-400); RED BLOOD CELL COUNT(AUTO) 3.35 MIL/uL (4.50-6.20); RED CELL DISTRIBUTION WIDTH 12.8 % (11.0-15.5); WHITE BLOOD COUNT (AUTO) 12.9 K/uL (4.8-10.8)
[2021-05-09] MEDS: ACETAMINOPHEN WITH CODEINE 1 TAB TAB PO PRN ×3 (04:26→22:33)
[2021-05-09] MEDS: ZOSYN 3.375GM+NS 50ML 50 ML IV SCH ×3 (04:26→21:49)
[2021-05-09 04:28] LABS: CREATININE 1.2 mg/dL (0.5-1.5)
[2021-05-09] MEDS: INSULIN HUMULIN R 100 UNIT/ML 3ML SQ SCH ×7 (06:31→22:00)
[2021-05-09 08:00] VITALS: BP 120/69
[2021-05-09] MEDS: FAMOTIDINE 20MG VIAL IV SCH ×2 (09:05→21:49)
[2021-05-09] MEDS: ASPIRIN 81MG CHEW TAB PO SCH (09:05)
[2021-05-09] MEDS: ATORVASTATIN 20 MG TABLET PO SCH (09:05)
[2021-05-09] MEDS: VANCOMYCIN 500MG+NS 100ML IVPB IV SCH (09:05)
[2021-05-09 12:00] VITALS: BP 94/58
[2021-05-09 16:00] VITALS: BP 97/54
[2021-05-09 19:52] LABS: BASOPHILS % (AUTO) 0.2 % (0.0-5.0); EOSINOPHILS % (AUTO) 2.3 % (0.0-8.0); HEMATOCRIT 27.3 % (42-54); LYMPHOCYTES % (AUTO) 23.3 % (21.0-51.0); MEAN CORPUSCULAR HEMOGLOBIN 29.2 pg (27.0-33.0); MEAN CORPUSCULAR VOLUME 88.6 fL (79-99); MONOCYTES % (AUTO) 8.3 % (3.0-13.0); NEUTROPHILS % (AUTO) 65.3 % (40.0-77.0); PLATELET COUNT (AUTO) 309 K/uL (130-400); RED BLOOD CELL COUNT(AUTO) 3.08 MIL/uL (4.50-6.20); RED CELL DISTRIBUTION WIDTH 13.2 % (11.0-15.5); WHITE BLOOD COUNT (AUTO) 9.9 K/uL (4.8-10.8)
[2021-05-09 20:00] VITALS: BP 96/62
[2021-05-09] MEDS: INSULIN GLARGINE 100 UNITS/ML 10 ML VIAL SQ SCH (21:59)
[2021-05-09] MEDS: VANCOMYCIN 750MG VIAL IVPB SCH (22:11)
[2021-05-09] MEDS: 0.9% NACL 250ML 250 ML IV SCH (22:11)
[2021-05-09] MEDS ORDERED: ACETAMINOPHEN WITH CODEINE 1 TAB TAB PO ONE (22:30)
[2021-05-10] VITALS: BP 124/74
[2021-05-10 04:00] VITALS: BP 137/78
[2021-05-10] MEDS: ZOSYN 3.375GM+NS 50ML 50 ML IV SCH ×2 (05:33→12:31)
[2021-05-10] MEDS: ACETAMINOPHEN WITH CODEINE 1 TAB TAB PO PRN ×2 (05:46→20:54)
[2021-05-10] MEDS: INSULIN HUMULIN R 100 UNIT/ML 3ML SQ SCH ×7 (06:38→20:53)
[2021-05-10 06:48] LABS: BASOPHILS % (AUTO) 0.2 % (0.0-5.0); EOSINOPHILS % (AUTO) 2.2 % (0.0-8.0); HEMATOCRIT 25.8 % (42-54); LYMPHOCYTES % (AUTO) 20.7 % (21.0-51.0); MEAN CORPUSCULAR HGB CONC 33.3 g/dL (32.0-36.0); MEAN CORPUSCULAR VOLUME 86.9 fL (79-99); MONOCYTES % (AUTO) 9.4 % (3.0-13.0); NEUTROPHILS % (AUTO) 66.8 % (40.0-77.0); PLATELET COUNT (AUTO) 299 K/uL (130-400); RED BLOOD CELL COUNT(AUTO) 2.97 MIL/uL (4.50-6.20); RED CELL DISTRIBUTION WIDTH 13.3 % (11.0-15.5); WHITE BLOOD COUNT (AUTO) 9.2 K/uL (4.8-10.8)
[2021-05-10 07:02] LABS: CREATININE 1.1 mg/dL (0.5-1.5); POTASSIUM 3.8 mmol/L (3.5-5.1)
[2021-05-10] MEDS ORDERED: INSULIN HUMULIN R 100 UNIT/ML 3ML SQ SCH (07:30)
[2021-05-10] MEDS: ASPIRIN 81MG CHEW TAB PO SCH (07:47)
[2021-05-10] MEDS: VANCOMYCIN 750MG VIAL IVPB SCH ×2 (07:47→20:53)
[2021-05-10] MEDS: 0.9% NACL 250ML 250 ML IV SCH ×2 (07:47→20:53)
[2021-05-10] MEDS: FAMOTIDINE 20MG VIAL IV SCH ×2 (07:47→20:53)
[2021-05-10] MEDS: ATORVASTATIN 20 MG TABLET PO SCH (07:47)
[2021-05-10 08:00] VITALS: BP 110/70
[2021-05-10 11:45] VITALS: BP 117/72
[2021-05-10 16:00] VITALS: BP 93/56
[2021-05-10 20:08] VITALS: BP 117/74
[2021-05-10] MEDS: INSULIN GLARGINE 100 UNITS/ML 10 ML VIAL SQ SCH (21:03)
[2021-05-11 00:08] VITALS: BP 119/69
[2021-05-11 04:12] VITALS: BP 102/64
[2021-05-11] MEDS: INSULIN HUMULIN R 100 UNIT/ML 3ML SQ SCH ×7 (07:07→20:34)
[2021-05-11 08:00] VITALS: BP 113/64
[2021-05-11] MEDS: ATORVASTATIN 20 MG TABLET PO SCH (08:59)
[2021-05-11] MEDS: FAMOTIDINE 20MG VIAL IV SCH ×2 (08:59→20:34)
[2021-05-11] MEDS: ASPIRIN 81MG CHEW TAB PO SCH (08:59)
[2021-05-11] MEDS: VANCOMYCIN 750MG VIAL IVPB SCH ×2 (09:00→22:41)
[2021-05-11] MEDS: 0.9% NACL 250ML 250 ML IV SCH ×2 (09:00→22:48)
[2021-05-11 12:00] VITALS: BP 131/79
[2021-05-11 16:00] VITALS: BP 107/62
[2021-05-11] MEDS: ACETAMINOPHEN WITH CODEINE 1 TAB TAB PO PRN (19:36)
[2021-05-11] MEDS: INSULIN GLARGINE 100 UNITS/ML 10 ML VIAL SQ SCH (20:33)
[2021-05-12] VITALS (7 sets, daily range): BP systolic 98–138; BP diastolic 51–68
[2021-05-12 04:28] LABS: BASOPHILS % (AUTO) 0.3 % (0.0-5.0); HEMATOCRIT 24.4 % (42-54); LYMPHOCYTES % (AUTO) 22.1 % (21.0-51.0); MEAN CORPUSCULAR HEMOGLOBIN 28.9 pg (27.0-33.0); MEAN CORPUSCULAR HGB CONC 32.4 g/dL (32.0-36.0); MEAN CORPUSCULAR VOLUME 89.4 fL (79-99); MONOCYTES % (AUTO) 9.2 % (3.0-13.0); NEUTROPHILS % (AUTO) 64.8 % (40.0-77.0); PLATELET COUNT (AUTO) 313 K/uL (130-400); RED BLOOD CELL COUNT(AUTO) 2.73 MIL/uL (4.50-6.20); RED CELL DISTRIBUTION WIDTH 13.3 % (11.0-15.5)
[2021-05-12 04:43] LABS: ALBUMIN 1.9 g/dL (3.5-5.0); BILIRUBIN,TOTAL 0.3 mg/dL (0.2-1.0); CREATININE 1.1 mg/dL (0.5-1.5); POTASSIUM 3.7 mmol/L (3.5-5.1); TOTAL PROTEIN, SERUM 6.3 g/dL (6.0-8.3)
[2021-05-12] MEDS: INSULIN HUMULIN R 100 UNIT/ML 3ML SQ SCH ×7 (05:25→22:08)
[2021-05-12] MEDS: ATORVASTATIN 20 MG TABLET PO SCH (08:19)
[2021-05-12] MEDS: ASPIRIN 81MG CHEW TAB PO SCH (08:19)
[2021-05-12] MEDS: FAMOTIDINE 20MG VIAL IV SCH ×2 (08:19→22:01)
[2021-05-12] MEDS: 0.9% NACL 250ML 250 ML IV SCH (09:45)
[2021-05-12] MEDS: VANCOMYCIN 750MG VIAL IVPB SCH (09:45)
[2021-05-12] MEDS ORDERED: COMPOUND IV MISC 1 EACH IVSOLN MISC PRN (12:00)
[2021-05-12] MEDS: IRON SUCROSE COMPLEX 100 MG in 0.9%NACL 50ML 50 ML IV SCH (12:50)
[2021-05-12 13:57] LABS: HEMATOCRIT 24.6 % (42-54)
[2021-05-12] MEDS: INSULIN GLARGINE 100 UNITS/ML 10 ML VIAL SQ SCH (22:07)
[2021-05-13 03:44] VITALS: BP 99/53
[2021-05-13 05:29] LABS: BASOPHILS % (AUTO) 0.3 % (0.0-5.0); EOSINOPHILS % (AUTO) 2.5 % (0.0-8.0); HEMATOCRIT 25.7 % (42-54); LYMPHOCYTES % (AUTO) 17.7 % (21.0-51.0); MEAN CORPUSCULAR HEMOGLOBIN 28.7 pg (27.0-33.0); MEAN CORPUSCULAR HGB CONC 32.3 g/dL (32.0-36.0); MEAN CORPUSCULAR VOLUME 88.9 fL (79-99); MONOCYTES % (AUTO) 8.7 % (3.0-13.0); PLATELET COUNT (AUTO) 381 K/uL (130-400); RED BLOOD CELL COUNT(AUTO) 2.89 MIL/uL (4.50-6.20); RED CELL DISTRIBUTION WIDTH 13.1 % (11.0-15.5); WHITE BLOOD COUNT (AUTO) 11.9 K/uL (4.8-10.8)
[2021-05-13 05:46] LABS: ALBUMIN 2.1 g/dL (3.5-5.0); BILIRUBIN,TOTAL 0.3 mg/dL (0.2-1.0); CREATININE 1.2 mg/dL (0.5-1.5); POTASSIUM 3.9 mmol/L (3.5-5.1)
[2021-05-13] MEDS: INSULIN HUMULIN R 100 UNIT/ML 3ML SQ SCH ×6 (06:45→17:00)
[2021-05-13 07:32] VITALS: BP 148/73
[2021-05-13] MEDS: ASPIRIN 81MG CHEW TAB PO SCH (07:59)
[2021-05-13] MEDS: FAMOTIDINE 20MG VIAL IV SCH (07:59)
[2021-05-13] MEDS: ACETAMINOPHEN WITH CODEINE 1 TAB TAB PO PRN (07:59)
[2021-05-13] MEDS: ATORVASTATIN 20 MG TABLET PO SCH (07:59)
[2021-05-13 12:04] VITALS: BP 110/65
[2021-05-13] MEDS: IRON SUCROSE COMPLEX 100 MG in 0.9%NACL 50ML 50 ML IV SCH (12:43)
[2021-05-13] MEDS ORDERED: ASPI-1005 PO (13:06)
[2021-05-13] MEDS ORDERED: PANT20TA PO (13:06)
[2021-05-13] MEDS ORDERED: TYL3B PO (13:06)
[2021-05-13] MEDS ORDERED: FERS325 PO (13:06)
[2021-05-13 15:41] VITALS: BP 125/67
== END 2021-05-13 18:11 | disposition home or self-care (01) | DRG 853 ==
LOC: EDH 23:14 → EDHIP 23:15 → 4DH 05-06 01:12 → 3CH 05-11 07:58
PROVIDERS: ADMIT Internal Medicine; ATTEND Internal Medicine
PROC: 30233N1 Transfusion of Nonautologous Red Blood Cells into Peripheral Vein, Percutaneous Approach (ICD-10-PCS; 2021-05-08 13:08)
PROC: 0Y6J0Z1 Detachment at Left Lower Leg, High, Open Approach (ICD-10-PCS; principal; 2021-05-09)
DX: A41.9 Sepsis, unspecified organism (principal); A48.0 Gas gangrene; E44.0 Moderate protein-calorie malnutrition; N17.9 Acute kidney failure, unspecified; D62 Acute posthemorrhagic anemia; E87.1 Hypo-osmolality and hyponatremia; L03.90 Cellulitis, unspecified; M86.10 Other acute osteomyelitis, unspecified site; E11.52 Type 2 diabetes mellitus with diabetic peripheral angiopathy with gangrene; N18.30 Chronic kidney disease, stage 3 unspecified; Z20.822 Contact with and (suspected) exposure to COVID-19; E11.69 Type 2 diabetes mellitus with other specified complication; E66.9 Obesity, unspecified; F17.210 Nicotine dependence, cigarettes, uncomplicated; F39 Unspecified mood [affective] disorder; F43.20 Adjustment disorder, unspecified; E11.22 Type 2 diabetes mellitus with diabetic chronic kidney disease; E11.43 Type 2 diabetes mellitus with diabetic autonomic (poly)neuropathy; E11.621 Type 2 diabetes mellitus with foot ulcer; E11.40 Type 2 diabetes mellitus with diabetic neuropathy, unspecified; G62.9 Polyneuropathy, unspecified; I12.9 Hypertensive chronic kidney disease with stage 1 through stage 4 chronic kidney disease, or unspecified chronic kidney disease; I95.1 Orthostatic hypotension; L97.529 Non-pressure chronic ulcer of other part of left foot with unspecified severity; Z68.24 Body mass index [BMI] 24.0-24.9, adult; Z88.5 Allergy status to narcotic agent; I25.2 Old myocardial infarction; Z79.4 Long term (current) use of insulin; Z83.3 Family history of diabetes mellitus; Z82.49 Family history of ischemic heart disease and other diseases of the circulatory system
CPT/HCPCS: 36415; 71045; 73700; 78452; 80048; 80053; 80061; 80202; 81001; 82010; 82550; 82570; 82607; 82728; 82746; 82948; 83036; 83540; 83550; 83605; 83690; 83735; 83874; 84100; 84145; 84156; 84300; 84484; 84550; 85014; 85018; 85025; 85610; 85651; 86140; 86850; 86900; 86901; 86923; 87040; 87088; 87635; 87804; 93005; 93017; 96374; 97039; A9500; C9803; G0378; J0330; J1100; J1756; J1815; J2001; J2250; J2405; J2543; J2704; J2710; J2785; J2795; J3010; J3370; J3490; J7030; J7050; J7120; P9016; P9045